=== PATIENT | female | born 1980 | race Caucasian/White ===

== ENCOUNTER 2016-08-18 13:32 | Emergency (ER) | payer OTHER ==
[~2016-08-18 13:32] MED LIST: VOLTAREN75 MG PO; ZANTAC PO
== END 2016-08-18 13:59 | disposition home or self-care (01) ==
LOC: SED 13:32
DX: L50.9 Urticaria, unspecified (principal); K21.9 Gastro-esophageal reflux disease without esophagitis; Z79.899 Other long term (current) drug therapy
CPT/HCPCS: 99282